=== PATIENT | male | born 1955 | race American Indian/Alaskan Native ===

== ENCOUNTER 2022-01-19 02:21 | Emergency (ER) | payer MEDICARE, MEDICAID ==
[~2022-01-19] VITALS: Ht 167.6 cm; Wt 68.0 kg
[2022-01-19 04:00] LABS: Urine Bacteria NONE SEEN /hpf (None Seen); Urine Blood Negative /uL (Negative); Urine Specific Gravity 1.009 (1.001-1.035); Urine WBC <1 /hpf (0 - 3)
[2022-01-19 05:08] VITALS: BP 152/87
== END 2022-01-19 06:39 | disposition home or self-care (01) ==
LOC: ER 02:21
DX: R33.9 Retention of urine, unspecified (principal)
CPT/HCPCS: 51702; 81001

== ENCOUNTER 2022-02-13 08:02 | Emergency (ER) | payer MEDICARE, MEDICAID ==
[~2022-02-13] VITALS: Ht 167.6 cm; Wt 68.0 kg
[2022-02-13] MEDS ORDERED: cloNIDine HCL 0.1 MG TAB PO ONE (09:15)
[2022-02-13] MEDS ORDERED: cefTRIAXone 1GM/50ML D5W 50 ML IV ONE (09:15)
[2022-02-13 09:56] LABS: Basophils # (auto) 0.1 10 ^3/uL (0-0.2); Basophils % (auto) 0.5 % (0.0-2.0); Eosinophils # (auto) 0.2 10 ^3/uL (0-0.8); Eosinophils % (auto) 1.7 % (0.0-7.0); Hematocrit 46.9 % (41.0-53.0); Hemoglobin 16.1 g/dL (13.5-17.5); Lymphocytes # (auto) 1.7 10 ^3/uL (0.4-5.4); Lymphocytes % (auto) 14.6 % (10.0-50.0); Mean Corpuscular Hemoglobin 30.9 pg (28.0-32.0); Mean Corpuscular Hgb Conc. 34.3 g/dL (32.0-36.0); Monocytes % (auto) 8.7 % (0.0-12.0); Neutrophils # (auto) 8.5 10 ^3/uL (1.6-8.6); Neutrophils % (auto) 74.5 % (37.0-80.0); Red Blood Cells 5.21 10^6/uL (4.5-5.90); Red Cell Distribution Width 12.9 % (11.8-14.3); White Blood Cell 11.5 10^3/uL (4.4-10.8)
[2022-02-13 10:01] LABS: BUN/Creatinine Ratio 15.3; Calcium 8.5 mg/dL (8.5-10.1); Potassium 4.1 mmol/L (3.5-5.1)
[2022-02-13 10:34] LABS: Urine Bacteria MOD /hpf (None Seen); Urine Blood 3+ /uL (Negative); Urine Specific Gravity 1.016 (1.001-1.035); Urine WBC 288 /hpf (0 - 3); Urine WBC Clumps PRESENT /hpf (None Seen)
[2022-02-13 12:08] VITALS: BP 135/82
[2022-02-13] MEDS ORDERED: SULF400T11 PO (12:17)
== END 2022-02-13 13:43 | disposition home or self-care (01) ==
LOC: ER 08:02
DX: T83.9XXA Unspecified complication of genitourinary prosthetic device, implant and graft, initial encounter (principal); R33.9 Retention of urine, unspecified; N39.0 Urinary tract infection, site not specified; I10 Essential (primary) hypertension
CPT/HCPCS: 36415; 51702; 80048; 81001; 85025; 96365; 99285; J0696